=== PATIENT | male | born 1950 | race Caucasian/White ===

== ENCOUNTER 2020-09-21 07:16 | Outpatient (CLI) | payer MEDICARE, SELFPAY ==
--- NOTE | 2020-09-21 07:51 | ECG_ITS ---
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 The perfusion scan will be documented separately. DATA: Baseline heart rate was [65 beats per minute. Baseline blood pressure was 152/81 millimeters of mercury. Target heart rate was 149. Maximum heart rate achieved was 81, which was 54 % of the predicted target heart rate. Maxim/um blood pressure was 156/81 millimeters of mercury. The reason for ending the test was completion of the protocol. The patient did not experience any symptoms. ELECTROCARDIOGRAM: BASELINE: Sinus rhythm. Normal axis. Otherwise, no ST-T changes suggestive of ischemia noted. No arrhythmia noted. EXERCISE: After Lexiscan injection, no ST-T changes suggestive of ischemic noted. No arrhythmia noted. CONCLUSION: Please note due to baseline abnormality of the EKG specificity and sensitivity of the EKG portion of LexiScan MIBI stress test will be low 1. EKG not suggestive of ischemia 2. Lexiscan injection unremarkable. 3. Perfusion scan will be documented separately. Electronically Signed On 09-22-2020 18:37:13 CDT by NORM CULLEN
[2020-09-21 07:52] VITALS: BMI 33.0
--- NOTE | 2020-09-21 07:52 | NMCV_ITS ---
NM mia perf SPECT r/s* [id number] Jorge A Sexton Age: 70 Gender: M : 1950 Exam Date: 09/21/2020 07:52 Ordering Phys: Elenita Murrieta Technologist: CRISELDA Cruz Exam Location: [facility] Indications: Chest pain STRESS TEST Please see separate stress test report in [facility] for full findings IMAGE PROTOCOL Rest/Stress 1 Lexiscan Day Radiopharmaceutical Dose (mCi) Administration Site Administered by Rest: Tc-99m 10.3 IV CRISELDA Cruz Sestamibi Stress:Tc-99m 32.7 IV CRISELDA Cruz Sestamibi Rest: 21-Sep-2020 60 Discovery 630 Stress: 21-Sep-2020 45 Discovery 630 0.4mg Lexiscan, .images obtained in supine and prone position. SPECT RESULTS Technical Quality: Good Raw Data Analysis: Normal Image Corrections: No attenuation or motion correction applied Summed Stress Score: 0 Summed Rest Score: 1 Summed Difference Score: 0 PERFUSION FINDINGS Medium-sized area of fixed perfusion defect noted in the basal to mid inferior inferolateral wall suggestive of old myocardial infarction versus artifact. FUNCTIONAL RESULTS (calculated via Gated SPECT) Stress Image LV EF (%): 43 Stress EDV (mL):92 TID: 1.22 Stress ESV (mL):52 Rest Image LV EF (%): 43 FUNCTIONAL FINDINGS: Left ventricular ejection fraction is moderately reduced however this may not be completely reliable or accurate. There may be global hypokinesis. Echocardiogram is better modality to assess LV function. IMPRESSIONS Medium-sized area of basal to mid inferior inferolateral wall fixed perfusion defect suggestive of old myocardial infarction versus scarring . Artifact cannot be ruled out in the absence of prone images TID ratio was elevated 1.2 which could be secondary to left ventricle hypertrophy/subendocardial ischemia. This study is negative for ischemia. EKG segment will be documented separately. Kentrell Christine MD (Electronically Signed) Final Date: 21 September 2020 12:35 S
--- NOTE | 2020-09-21 08:12 | PC.NURSE ---
STRESS TEST NOTE Júnior. DINA SHIELDS CALLED AT 0745. A MESSAGE WAS LEFT FOR HER TO CALL ME BACK FOR AN ORDER CLARIFICATION. TELEPHONE ORDER RECEIVED AT 0815 TO CHANGE THE TEST FROM A DOBUTAMINE SESTAMIBI TO A LEXISCAN SESTAMIBI STRESS TEST.
[2020-09-21] MEDS: regadenoson 0.4 Mg/5 ml Syringe IVP (09:15)
[2020-09-21 09:31] VITALS: BP 144/75; PULSE 70
== END 2020-09-21 07:17 | disposition home or self-care (01) ==
LOC: CDL 07:20
PROVIDERS: PCP Nurse Practitioner Family; Visit Provider Nurse Practitioner Family
DX: R07.9 Chest pain, unspecified (principal); I25.2 Old myocardial infarction
CPT/HCPCS: 78452; 93017; A9500; J2785

== ENCOUNTER 2020-10-22 12:30 | Outpatient (CLI) | payer MEDICARE, SELFPAY ==
[2020-10-22 12:57] LABS: Basophils # 0.1 10^3/uL (0.0-0.1); Basophils % 0.8 %; Eosinophils # 0.2 10^3/uL (0.0-0.8); Eosinophils % 3.3 %; Hematocrit 41.5 % (42.0-52.0); Hemoglobin 14.3 g/dL (11.7-16.6); Lymphocytes % 31.6 %; Mean Corpuscular HGB Conc 34.5 g/dL (30.0-36.0); Mean Corpuscular Hemoglobin 31.4 pg (28.0-34.0); Mean Platelet Volume 9.2 fL (7.4-10.4); Monocytes # 0.4 10^3/uL (0.2-0.9); Monocytes % 6.5 %; Neutrophils # 3.71 10^3/uL (1.8-7.7); Neutrophils % 57.6 %; Nucleated Red Blood Cells % 0 %; Platelet Count 245 10^3/cmm (130-400); Red Blood Count 4.56 10^6/uL (4.1-5.3); Red Cell Distribution Width 12.8 % (12.1-15.1); White Blood Count 6.4 10^3/uL (4.0-10.0)
[2020-10-22 13:18] LABS: INR 0.97 (0.8-1.2)
[2020-10-22 13:22] LABS: Blood Urea Nitrogen 27 mg/dL (8-23); Calcium 9.4 mg/dL (8.5-10.5); Carbon Dioxide 27 mmol/L (22-29); Chloride 104 mmol/L (98-107); Chol HDL Ratio 7.42 mg/dL (1.0-5.00); Cholesterol 230 mg/dL (0-200); Glucose 99 mg/dL (65-115); HDL Cholesterol 31 mg/dL (60-100); LDL Cholesterol Calculated 154 mg/dL (50-129); LDL HDL Ratio 4.97 RATIO (0.00-3.22); Osmolality Calculated 295 mOsm/kg (285-295); Sodium 140 mmol/L (136-145); Triglycerides 224 mg/dL (0-150)
== END 2020-10-22 12:31 | disposition home or self-care (01) ==
PROVIDERS: PCP Nurse Practitioner Family; Visit Provider Internal Medicine
DX: E78.5 Hyperlipidemia, unspecified (principal); R07.89 Other chest pain
CPT/HCPCS: 36415; 80048; 80061; 85025; 85610; 87635

== ENCOUNTER → 2020-10-26 07:18 | Day surgery (SDC) | payer MEDICARE, SELFPAY ==
[2020-10-25 09:43] VITALS: BMI 33.6
[2020-10-27] VITALS (13 sets, daily range): BP systolic 125–146; BP diastolic 68–76; PULSE 53–75; RESP 13–18; O2SAT 98–100; BMI 33.6
--- NOTE | 2020-10-27 05:53 | XACV_ITS ---
Ht: 185 cm Wt: 116 kg BSA: 2.48 m2 Gender: Male : 1950 Any Known Allergies: No known allergies Exam Priority: Routine Procedure(s): Procedure Description: Diagnostic procedure Procedure Description: Left Heart Catheterization Procedure Description: Pressure Wire Procedure Description: Coronary angiography Diagnostic Cath Status: Elective Diagnostic Findings * A large ramus artery is noted. It gives off a branch which is medium sized and has a 80% proximal stenosis. No major stenosis in the main ramus artery. * RCA is a large, dominant vessel. Proximal to mid RCA has 30-40% stenosis. It gives rise to a PDA and PLV branches. PDA is a large vessel that has distal 70% stenosis. RPDA: Moderate 70% stenosis, MARIANA: 3 flow. * LAD arises from left main artery. Mid Left Anterior Descending Coronary Artery: Moderate 50% stenosis, MARIANA: 3 flow. We performed FFR of mid LAD that was not significant. * After coronary angiography we decided to perform FFR of mid LAD. IV heparin was administered to maintain FFR more than 250 seconds. Left main artery was engaged using XB 3.5 guide catheter. After zeroing and equalizing, the pressure device was placed in distal LAD past the mid LAD stenosis. FFR was performed using IV adenosine. An FFR value of 0.87 was obtained which was not significant. At this time guidewire was removed and final angiogram was performed. Patient left the Touch Up Worker in stable condition.. * LM has 0% stenosis. * dCIRC: Severe 80% stenosis, MARIANA: 3 flow. * Coronary angiography shows right dominance. Conclusions 1. There is multivessel coronary artery disease however significant stenosis are in very distal vessels.. 2. Moderate mid LAD stenosis. FFR not significant. Recommendations * Given patient's atherosclerotic coronary artery disease, we will start atorvastatin 40 mg daily. * Aggressive * blood pressure control. * We will recommend medical therapy with aggressive risk factor modification. If patient continues having symptoms in future, can consider revascularization of distal circumflex and branch of ramus however optimal medical therapywill be strategy of choice here.. Interventional RX Recommendation: medical therapy and/or counseling Diagnostic RX Recommendation: medical therapy and/or counseling Anticoagulation: Heparin Pressures Phase:Rest AO : 122 / 65 ( 89 ) @ 1:53:00 AM 136 / 24 ( 57 ) @ 1:59:00 AM LV : 152 / -16 / @ 1:59:00 AM Clinical Evaluation EBL: 5mL-10mL Procedural Details Procedure Consent Obtained. Pre-Procedure Time Out. Identified patient by full name and date of as verbalized by the patient/guarantor. Does the consent match the physician's order: Yes. Accurate & Complete Informed Consent: Yes. Inpatient/Outpatient History & Physical on Chart: Yes. If H&P is completed, is and addenduem needed: N/A; If yes, is the addendum complete: N/A. Visualize and Verify Site with Patient/Guarantor: N/A. Relevant Radiology Images available: Yes. Pre-op teaching completed and patient verbalized understanding. The risks, benefits, and alternatives of sedation and/or procedure were discussed by physician. The patient agrees to continue. Procedure started. Correct patient, site and procedure confirmed by cath team. PERRLA. Strong, equal hand production tool engineer bilaterally. Lungs clear x 5 lobes. IV Site on Arrival: 20 gauge in the right anticubital. IV Fluids: 0.9% NaCl at KVO. 0 mL infused prior to cath lab radiological technologist. Pre Procedural Pulses: right dorsalis pedis was 2+. Pre Procedural Pulses: left dorsalis pedis was Doppled. Pre Procedural Pulses: right posterior tibial was 3+. Pre Procedural Pulses: left posterior tibial was Doppled. Pre Procedural Pulses: bilateral radial was 3+. Oxygen started at 2liters/min via nasal canula. right groin was prepped with chloroprep then draped in the usual sterile fashion. right radial was prepped with chloroprep then draped in the usual sterile fashion. Physician notified. Equipment: 6F - Radial. Cardiac Cath Pack. ACIST Manifold Kit Model BT 2000. Heparinized Saline (2 units/mL), 1000 mL bag. Physician arrived. Baseline sample Acquired. HR: 50 BPM. Physician scrubbed in. Immediate Pre-Procedure Time Out. Correct Patient: Yes; Correct Procedure: Yes; Correct Site: Yes; Correct Patient Position: Yes; Correct Supplies: Yes; Dried Flammable Prep: Yes; Blood Products Available: No;. Lidocaine 1% infiltrated to the right radial. Arterial access obtained. Glidewire inserted. A 5 yoruba TIG catheter in over wire. wire out. Multiple views taken of left coronary artery. Catheter redirected to the RCA. EDP Sample taken: LV 152/-17,5; HR: 72 BPM; SpO2: 99%. Pullback taken: LV Off; AO Off; Mean: , Peak to Peak: , SEP: ; HR: 59 BPM; SpO2: 99%. Multiple views taken of right coronary artery. Catheter out. Dr. Dominguez reviewing pictures. Physician scrubbed in. wire inserted. 6 yoruba XB 3.5 guide catheter was inserted over the wire. wire out. FFR guidewire was advanced through the guide catheter to lesion in the mid LAD. An FFR value of 0.87 was obtained for a lesion located at Mid LAD. Fractional flow reserve measurements obtained. Wire out. Guide catheter out. A TR Band was successful obtaining hemostatsis at the Right Radial artery insertion site. TR band placed. Hemostasis obtained. Post Procedure: Pulses reassessed and unchanged. PERRLA. Strong, equal hand production tool engineer bilaterally. No VTE prophylaxis required. Medication's Wasted: Lidocaine 1% = 18 mL. Medication's Wasted: Nitro = 49.8 mg. Medication's Wasted: Heparin = 3000 units. Medication's Wasted: Other = adenosine 51.2 mg. Total IV fluids: 100 mL. Fluoro: 15:30. Contrast type used: Omnipaque 300 mgI/mL, 500 mL bottle. [id number]. Post-op diagnosis: moderate CAD. Complications: none. Estimated blood loss: 5mL-10mL. Procedure completed. Patient transferred by wheelchair to CPRU. [facility] Clinical Fraility Score: 2: Well. Touch Up Worker Indications: Worsening Angina. Chest Pain Symptom Assessment: Atypical Angina. Cardiovascular Instability: No. Vital chart was stopped. Access Site Site: Right Radial artery Sheath Size: 6 Fr Hemostasis Method: TR Band Hemostasis Success: Successful Procedure Medications Start: 7:40 AM Stop: 7:40 AM Medication: Versed Amount: 1 mg Route: I.V. Start: 7:40 AM Stop: 7:40 AM Medication: Fentanyl Amount: 50 mcg Route: I.V. Start: 7:49 AM Stop: 7:49 AM Medication: Nitrogylcerin Amount: 200 mcg Route: I.A. Start: 7:54 AM Stop: 7:54 AM Medication: Heparin Amount: 5000 units Route: I.V. Start: 7:59 AM Stop: 7:59 AM Medication: Versed Amount: 1 mg Route: I.V. Start: 7:59 AM Stop: 7:59 AM Medication: Fentanyl Amount: 50 mcg Route: I.V. Start: 8:13 AM Stop: 8:13 AM Medication: Heparin Amount: 3000 units Route: I.V. Start: 8:33 AM Stop: 8:33 AM Medication: Versed Amount: 1 mg Route: I.V. Start: 8:34 AM Stop: 8:34 AM Medication: Versed Amount: 1 mg Route: I.V. I, the attending physician, have reviewed and verified all procedure medications. Yes, all medications given per verbal order History/Risk Factors Hypertension: Yes Dyslipidemia: No Peripheral Arterial Disease (PAD): No Myocardial Infarction (OK): No Obesity: No Renal Disease: No Tobacco Use: Former Prior Interventions PCI: No CABG: No Valve Surgery: No Report Signatures Finalized by Azael Silveira MD on 10/28/2020 12:04 PM
[2020-10-27] MEDS: diphenhydrAMINE 50 mg Capsule PO (06:26)
--- NOTE | 2020-10-27 07:30 | PM.HP ---
Providers/Chief Complaint Primary Care Provider: DINA Gomes Chief Complaint: [facility] History of Present Illness 70-year-old man with past medical history of hypertension was referred to cardiology for evaluation of chest discomfort and fatigue. According to patient he started noticing substernal chest pressure about 2 to 3 months ago. Mostly it comes with exertion however can occur at rest as well. Lasts for a few minutes and then resolves especially on rest. It also radiates to the neck however he cannot differentiate between neck muscle pain and the pain associated with chest pressure. 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 For the similar duration he is also feeling very tired and fatigued. He says that he wakes up with normal energy however in the few hours he starts feeling really tired. This is new for him. EKG performed today in the office showed normal sinus rhythm possible inferior myocardial infarction. Patient has undergone nuclear stress test that showed a medium sized area of basal to mid inferior and inferior lateral wall fixed defect. Transient ischemic dilation was noted with a ratio of 1.2 that could represent multivessel disease. Review of Systems Const: Reports: fatigue; Denies: fever(s), chills or body aches Eyes: Reports: change in vision and blurry vision ENMT: Denies: odynophagia Card: Reports: swelling of feet/ankles and dyspnea on exertion; Denies: chest pain, palpitations, irregular heart rhythm, lightheadedness, syncope or orthopnea Resp: Denies: dyspnea, productive cough or non-productive cough GI: Denies: nausea, vomiting or heartburn : Denies: flank pain Musc: Reports: neck pain; Denies: back pain or joint pain Skin/Breast: Denies: rash or pruritus Neuro: Denies: headache(s), numbness in extremities, weakness in extremities, dizziness or vertigo Psych: Denies: anxiety or depression Martín/Lymph: Reports: easy bleeding; Denies: easy bruising Medications/Allergies Home Medications Medication Instructions Recorded Confirmed Last Taken Type aspirin 81 mg tablet,delayed 81 mg PO DAILY 12/30/19 10/27/20 10/26/20 20:00 History release telmisartan 40 mg tablet 40 mg PO DAILY #90 tab 08/31/20 10/27/20 10/27/20 04:30 Rx Allergies Allergy/AdvReac Type Severity Reaction Status Date / Time No Known Allergies Allergy Verified 09/22/20 09:39 PFSH Acute PFSH: Medical History HTN (hypertension), benign Family History Father Cancer pancreatic cancer Social History Smoking and tobacco status: former smoker Vitals/I&O/Wt Weight last 48 hrs Weight 255 lb Weight 255 lb Physical Exam Narrative: EXAM NARRATIVE: GENERAL: Patient is alert, awake and oriented x3. [] NECK: No jugular vein distension. [] HEENT: No cyanosis. No icterus. No pallor. [] HEART: Regular S1 and S2. No murmur, rub or gallop. [] LUNGS: Clear to auscultate bilaterally. [] ABDOMEN: Soft, nontender and nondistended. Positive bowel sounds. No guarding, rebound or tenderness. [] CENTRAL NERVOUS SYSTEM: Grossly nonfocal. [] EXTREMITIES: Lower extremities with 1+ edema bilaterally. Pulses palpable in the lower extremities, both dorsalis pedis and posterior tibial. [] A&P Assessment and plan (1) Abnormal cardiovascular stress test: Status: Acute (2) Chest pressure: Status: Acute (3) HTN (hypertension), benign: Status: Acute Patient has been having on and off chest discomfort episode along with significant fatigue that started recently. He underwent nuclear stress test that showed fixed defects however there was increased transient ischemic dilation ratio. Given his symptoms and nuclear stress test findings, we will proceed with coronary angiography with possible percutaneous coronary intervention. I have discussed the risks and benefits with the patient. Risks including bleeding, infection, abnormal kidney function, abnormal heart rhythm, heart attack, stroke or have been described. Patient understands the risks and benefits and wants to proceed with the procedure. Attestations Medical Necessity Statement*: Care not expected to cross 2 midnights. Patient here for outpatient coronary angiography with possible percutaneous coronary intervention. Coding Level of Care Code Acute Brand Activation Manager for [facility] Fwd Diagnoses Abnormal cardiovascular stress test R94.39 Chest pressure R07.89 HTN (hypertension), benign I10
--- NOTE | 2020-10-27 08:48 | PC.NURSE ---
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 diagnostic c with radial right wrist tr band in place. radial pulses +3. pt alert and oriented x3 able to ambulate to bed from wheelchair with no problems. surveillance monitor placed on pt and vitals obtained. no bleeding or hematoma noted. verbal instructions given to patient regarding right arm restrictions. he verbalized understanding. bed down and locked, call light on bedside table. no pain reported.
--- NOTE | 2020-10-27 10:45 | PC.NURSE ---
T R band deflated per protocol. No bleeding or swelling noted. PMS back to baseline.
== END | disposition home or self-care (01) ==
LOC: CCL 10-27 05:42 → CSU 10-27 09:04 → CCL 09-20 03:24
PROVIDERS: Internal Medicine; PCP Nurse Practitioner Family; Visit Provider Internal Medicine Cardiovascular Disease
DX: I25.10 Atherosclerotic heart disease of native coronary artery without angina pectoris (principal); R94.39 Abnormal result of other cardiovascular function study; R07.89 Other chest pain; I10 Essential (primary) hypertension; Z79.82 Long term (current) use of aspirin; Z87.891 Personal history of nicotine dependence
CPT/HCPCS: 93452; 93571; C1769; C1887; C1894; J0153; J1644; J2250; J3010; J3490; J7030; Q0163; Q9967

== ENCOUNTER → 2020-11-03 10:27 | Outpatient (BNVA) | payer MEDICARE, SELFPAY | PROVIDERS: PCP Nurse Practitioner Family; Visit Provider Nurse Practitioner Family | DX: I25.119 Atherosclerotic heart disease of native coronary artery with unspecified angina pectoris (principal); Z09 Encounter for follow-up examination after completed treatment for conditions other than malignant neoplasm | CPT/HCPCS: 80048 ==

== ENCOUNTER 2020-11-25 05:31 | Outpatient (CLI) | payer MEDICARE, SELFPAY ==
[2020-11-25] VITALS (10 sets, daily range): BP systolic 122–173; BP diastolic 66–78; PULSE 66–88; RESP 16–20; TEMP 36.6–37.2; O2SAT 93–96; BMI 33.9
--- NOTE | 2020-11-25 06:13 | ECG_ITS ---
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 Measurements Intervals [place] Rate: 73 P: 45 OR: 159 QRS: -33 QRSD: 104 T: 73 QT: 409 QTc: 454 Interpretive Statements SINUS RHYTHM LEFT AXIS DEVIATION [QRS AXIS < -30] PATTERN CONSISTENT WITH PULMONARY DISEASE NONSPECIFIC ST & T-WAVE ABNORMALITY No previous ECG available for comparison Electronically Signed On 11-25-2020 15:01:35 COMB MACHINE OPERATOR by Azael Silveira M.D. [email or web address]
--- NOTE | 2020-11-25 06:13 | XR_ITS ---
WS: [id number] Exam: XR chest 1V portable [id number] Date/Time of Exam: 11/25/2020 7:20 AM Reason For Exam: dyspnea/cough No priors. Groundglass infiltrates noted in the mid and lower right lung and possibly in the mid left lung. Hear t size is normal for technique. No pleural effusions. No pneumothorax. Regional bony structures are u nremarkable. XR/XR chest 1V portable [id number] IMPRESSION: 1. Ground glass infiltrates in the mid and lower right lung and probably in the mid left lung. These changes could be chronic but most likely represent active pneumonia.
--- NOTE | 2020-11-25 06:14 | ED_ITS ---
HPI - General Adult General: Chief complaint: General Medical Stated complaint: general unwell Time Seen by Provider: 11/25/20 05:45 History of Present Illness: HPI narrative: 70-year-old male presents emergency room complaining of just generally not feeling well. He states for the last week he has been sick with a cough increased shortness of breath low-grade fevers loss of appetite and anosmia. He has not had any diarrhea his cough has not been productive. 1 month ago he had a Covid swab for prescreening before a angiogram. The Covid swab was negative. 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 Patient denies any recent chest pain. Interestingly his thinks she had Covid 2 months ago and then about a month ago tested positive for screen prior to an eye surgery. Onset (ago): day(s) (6-) Severity: mild Relieving factors: none Associated symptoms: Reports malaise; Deny chest pain, dyspnea, nausea, rash or vomiting Review of Systems Const: Reports: fever(s), chills, body aches, change in appetite, fatigue and malaise ENMT: Reports: throat pain and nasal congestion; Denies: ear or mastoid pain or nasal discharge Card: Denies: chest pain, edema, dyspnea on exertion or orthopnea Resp: Reports: non-productive cough and chest congestion; Denies: dyspnea or productive cough GI: Denies: abdominal pain, nausea, vomiting, hematemesis, coffee ground emesis, diarrhea, constipation, bloating, hematochezia or melena : Denies: flank pain, dysuria, urinary frequency or urinary urgency Skin/Breast: Denies: rash or pruritus PFSH ED PFSH: Medical History (Updated 11/25/20 @ 08:50 by Robert Hare DO) CAD (coronary artery disease) HTN (hypertension), benign Family History Father Cancer pancreatic cancer Social History Smoking and tobacco status: former smoker Physical Exam Const: COMMON NORMALS: no acute distress GENERAL APPEARANCE: cooperative and comfortable ORIENTATION/CONSCIOUSNESS: Yes awake, Yes oriented to person, Yes oriented to place and Yes oriented to time HENMT: COMMON NORMALS: normocephalic, atraumatic and hearing grossly normal bilaterally HEAD & SCALP: normocephalic and atraumatic Eye: COMMON NORMALS: Equal, round and reactive pupils present, EOMs intact bilaterally, conjunctivae normal and no scleral icterus CONJUNCTIVA: Yes conjunctivae normal PUPIL: Yes Equal, round and reactive pupils present Neck/C-Spine: COMMON NORMALS: full ROM, no lymphadenopathy, supple and no JVD Lymph: LYMPHATIC: no lymphadenopathy noted and no lymphedema noted Resp: COMMON NORMALS: normal respiratory effort, No retractions, No use of accessory muscles and clear to auscultation bilaterally AUSCULTATION: clear to auscultation bilaterally Cardio: COMMON NORMALS: no JVD, regular rate, regular rhythm and No murmurs present (Cardio) RATE: regular rate RHYTHM: regular rhythm GI: COMMON NORMALS: Soft to palpation and No hepatosplenomegaly present AUSCULTATION: Yes normoactive bowel sounds PALPATION: Yes Soft to palpation, No Tenderness to palpation present (GI), No Guarding due to palpation present (GI) and Yes No hepatosplenomegaly present Extremity: COMMON NORMALS: normal to inspection, capillary refill normal, no clubbing, cyanosis or edema, no calf tenderness and no pedal edema Neuro: SENSORIUM/ORIENTATION: Yes oriented to person, Yes oriented to place and Yes oriented to time Skin: COMMON NORMALS: no rashes or lesions noted GENERAL SKIN EXAM: no rashes or lesions noted Course Vital Signs: Vital signs: Vital Signs Temperature 97.9 F 11/25/20 11:33 Pulse Rate 67 11/25/20 11:33 Respiratory Rate 16 11/25/20 11:33 Blood Pressure 145/73 11/25/20 11:33 Pulse Oximetry 96 11/25/20 11:33 MDM - General Adult Differential Diagnosis: Differential Diagnosis: You tested positive for COVID- 19 today. Recommend that you remain self quarantined for the next 14 days. After being discharged from the emergency room you will be brought to the infusion clinic for monoclonal antibodies. Patient tested positive on antigen test for COVID-19. He is stable and meets requirements for inclusion in monoclonal antibody treatment therapy. We will go ahead and send him over to the infusion clinic I have already discussed with him and given him the information he has signed to the consent. Lab Data: Labs: Lab Results 12/31/20 12/31/20 12/31/20 Range/Units 06:25 06:40 06:40 WBC 4.5 (4.0-10.0) 10^3/ uL RBC 4.59 (4.1-5.3) 10^6/u L Hgb 14.2 (11.7-16.6) g/dL Hct 40.5 L (42.0-52.0) % MCV 88.2 (80-94) fL MCH 30.9 (28.0-34.0) pg MCHC 35.1 (30.0-36.0) g/dL RDW 12.2 (12.1-15.1) % Plt Count 159 (130-400) 10^3/c mm MPV 10.1 (7.4-10.4) fL Neut % (Auto) 78.2 % Lymph % (Auto) 15.8 % Custer % (Auto) 5.6 % Eos % (Auto) 0.0 % Baso % (Auto) 0.2 % Neut # (Auto) 3.51 (1.8-7.7) 10^3/u L Lymph # (Auto) 0.7 L (0.8-4.8) 10^3/u L Custer # (Auto) 0.3 (0.2-0.9) 10^3/u L Eos # (Auto) 0.0 (0.0-0.8) 10^3/u L Baso # (Auto) 0.0 (0.0-0.1) 10^3/u L Nucleated RBC % (a uto) 0 % Nucleated RBCs # 0.0 /100WBC Sodium 137 (136-145) mmol/L Potassium 3.3 L (3.5-5.1) mmol/L Chloride 102 (98-107) mmol/L Carbon Dioxide 24 (22-29) mmol/L Anion Gap 14.3 (5-19) BUN 16 (8-23) mg/dL Creatinine 0.8 (0.7-1.2) mg/dL GFR Calculation Not Reportable Glucose 101 (65-115) mg/dL Calculated Osmolal ity 285 (285-295) mOsm/k g Calcium 8.4 L (8.5-10.5) mg/dL Total Bilirubin 0.8 (0.15-1.2) mg/dL AST 52 H (0-40) U/L ALT 49 H (0-41) U/L Alkaline Phosphata se 55 (40-130) IU/L Total Protein 7.0 (6.6-8.7) g/dL Albumin 3.8 (3.5-5.2) g/dL Globulin 3.2 (1.3-4.6) g/dL Urine Color (Yellow) Urine Appearance (CLEAR) Urine pH (5-7) Ur Specific Gravit y (1.005-1.030) Urine Protein (Negative) Urine Glucose (UA) (Normal) Urine Ketones (Negative) Urine Blood (Negative) Urine Nitrate (Negative) Urine Bilirubin (Negative) Urine Urobilinogen (Negative) mg/dL Ur Leukocyte Nessa ase (Negative) Urine RBC (0-2) /hpf Urine WBC (0-5) /hpf Ur Squamous Epith Cells (0-5) /hpf Amorphous Sediment Urine Bacteria (NONE) /hpf Urine Mucus /hpf SARS-CoV-2 Ag (Rap id) Positive H (Negative) 11/25/20 Range/Units 07:54 WBC (4.0-10.0) 10^3/ uL RBC (4.1-5.3) 10^6/u L Hgb (11.7-16.6) g/dL Hct (42.0-52.0) % MCV (80-94) fL MCH (28.0-34.0) pg MCHC (30.0-36.0) g/dL RDW (12.1-15.1) % Plt Count (130-400) 10^3/c mm MPV (7.4-10.4) fL Neut % (Auto) % Lymph % (Auto) % Custer % (Auto) % Eos % (Auto) % Baso % (Auto) % Neut # (Auto) (1.8-7.7) 10^3/u L Lymph # (Auto) (0.8-4.8) 10^3/u L Custer # (Auto) (0.2-0.9) 10^3/u L Eos # (Auto) (0.0-0.8) 10^3/u L Baso # (Auto) (0.0-0.1) 10^3/u L Nucleated RBC % (a uto) % Nucleated RBCs # /100WBC Sodium (136-145) mmol/L Potassium (3.5-5.1) mmol/L Chloride (98-107) mmol/L Carbon Dioxide (22-29) mmol/L Anion Gap (5-19) BUN (8-23) mg/dL Creatinine (0.7-1.2) mg/dL GFR Calculation Glucose (65-115) mg/dL Calculated Osmolal ity (285-295) mOsm/k g Calcium (8.5-10.5) mg/dL Total Bilirubin (0.15-1.2) mg/dL AST (0-40) U/L ALT (0-41) U/L Alkaline Phosphata se (40-130) IU/L Total Protein (6.6-8.7) g/dL Albumin (3.5-5.2) g/dL Globulin (1.3-4.6) g/dL Urine Color Yellow (Yellow) Urine Appearance Clear (CLEAR) Urine pH 5.0 (5-7) Ur Specific Gravit y 1.020 (1.005-1.030) Urine Protein 1+ H (Negative) Urine Glucose (UA) Norm (Normal) Urine Ketones 1+ H (Negative) Urine Blood Neg (Negative) Urine Nitrate Negative (Negative) Urine Bilirubin 1+ H (Negative) Urine Urobilinogen 1 H (Negative) mg/dL Ur Leukocyte Nessa ase Negative (Negative) Urine RBC None (0-2) /hpf Urine WBC 0-4 H (0-5) /hpf Ur Squamous Epith Cells 5-10 H (0-5) /hpf Amorphous Sediment Not Reportable Urine Bacteria Trace (NONE) /hpf Urine Mucus 2+ /hpf SARS-CoV-2 Ag (Rap id) (Negative) Discharge Plan Discharge Patient Disposition: Home Clinical Impression: COVID-19, HTN (hypertension), benign Condition: Stable Discharge Orders: Discharge ED (Routine); Ordered 11/25/20 Ordered By: Robert Hare Discharge Diet: Usual diet Discharge Activity: Increase activity as tolerated Coding Level of Care Code ED [place] Machine Operator for Chg Fwd Exam Comprehensive
[2020-11-25 06:58] LABS: Basophils % 0.2 %; Hematocrit 40.5 % (42.0-52.0); Hemoglobin 14.2 g/dL (11.7-16.6); Lymphocytes # 0.7 10^3/uL (0.8-4.8); Lymphocytes % 15.8 %; Mean Corpuscular HGB Conc 35.1 g/dL (30.0-36.0); Mean Corpuscular Hemoglobin 30.9 pg (28.0-34.0); Mean Corpuscular Volume 88.2 fL (80-94); Mean Platelet Volume 10.1 fL (7.4-10.4); Monocytes # 0.3 10^3/uL (0.2-0.9); Monocytes % 5.6 %; Neutrophils # 3.51 10^3/uL (1.8-7.7); Neutrophils % 78.2 %; Nucleated Red Blood Cells % 0 %; Platelet Count 159 10^3/cmm (130-400); Red Blood Count 4.59 10^6/uL (4.1-5.3); Red Cell Distribution Width 12.2 % (12.1-15.1); White Blood Count 4.5 10^3/uL (4.0-10.0)
[2020-11-25 07:19] LABS: Alanine Aminotransferase 49 U/L (0-41); Albumin Level 3.8 g/dL (3.5-5.2); Alkaline Phosphatase 55 IU/L (40-130); Anion Gap 14.3 (5-19); Aspartate Amino Transferase 52 U/L (0-40); Blood Urea Nitrogen 16 mg/dL (8-23); Calcium 8.4 mg/dL (8.5-10.5); Carbon Dioxide 24 mmol/L (22-29); Chloride 102 mmol/L (98-107); Creatinine Clr Calc Pharmacy 110.1115; Globulin 3.2 g/dL (1.3-4.6); Glucose 101 mg/dL (65-115); Osmolality Calculated 285 mOsm/kg (285-295); Potassium 3.3 mmol/L (3.5-5.1); Sodium 137 mmol/L (136-145); Total Bilirubin 0.8 mg/dL (0.15-1.2)
[2020-11-25 07:25] LABS: SARS Covid-2 Antigen Positive (Negative)
--- NOTE | 2020-11-25 08:31 | DCPLANNER ---
Addendum entered by Harika Ortez 12/07/20 16:03: regulatory product manager called to check on patient 10 days after getting the BAM infusion. Patient stated that he was doing fine, has not been admitted to the hospital anywhere. Addendum entered by Harika Ortez 12/02/20 15:59: regulatory product manager called patient to check on patient after getting the BAM infusion. regulatory product manager unable to speak with patient at this time, and unable to leave a voicemail for patient. Addendum entered by Harika Ortez 11/30/20 16:11: regulatory product manager had message that patient received the BAM infusion. regulatory product manager called to check on patient after receiving the BAM infusion. Patient stated that he tolorated the infusion great. That before the infusion, that he was real sick, that he had a cough, fever, headache, and his body ached all over. Patient stated that after the infusion that he is feeling great. Patient stated that he was feeling better the next day. He does not have a fever, no cough, feeling great. Original Note: regulatory product manager was asked to arrange an out patient BAM infusion for patient. regulatory product manager faxed patients order for the BAM infusion to centralized scheduling.
[2020-11-25 08:36] LABS: Add Urine Culture? No; Add Urine Microscopic? YES; Bacteria Urine TRACE /hpf; Bilirubin Urine 1+ (Negative); Blood Urine Neg (Negative); Glucose Urine UA Norm (Normal); Ketones Urine 1+ (Negative); Leukocyte Esterase Urine Negative (Negative); Mucus Urine 2+ /hpf; Nitrate Urine Negative (Negative); Protein Urine 1+ (Negative); Urine Appearance Clear (CLEAR); Urine Color Yellow (Yellow); Urobilinogen Urine 1 mg/dL (Negative); WBC Urine 0-4 /hpf (0-5)
--- NOTE | 2020-11-25 08:58 | PC.NURSE ---
Taken to the [facility] for the [facility] infusion with RN and Tech to clear the [place]. Pt and nurse with PPE.
== END 2020-11-25 11:30 | disposition home or self-care (01) ==
LOC: ER 06:16 → OPS 08:48 → ER 08:58 → OPS 09:05
PROVIDERS: Emergency Provider Family Medicine; Family Provider Nurse Practitioner Family; PCP Nurse Practitioner Family; Visit Provider Family Medicine
DX: U07.1 COVID-19 (principal)
CPT/HCPCS: 12345; 71045; 80053; 81001; 85025; 87426; 93005; 99283; J7050

== ENCOUNTER 2021-01-17 09:49 | Outpatient (CLI) | payer MEDICARE, SELFPAY ==
--- NOTE | 2021-01-17 10:15 | USCV_ITS ---
Jorge A Sexton Age: 70 Gender: M : 1950 Exam Date: 01/17/2021 10:22 Ordering Phys: Theresa Erazo Technologist: Radha Hanson Exam Location: [facility] [place] Indication: ABNML RESULT OF OTHER CV FUNCTION STUDY BP: 187 / 93 HR: 67 Rhythm: Sinus Technical Quality: Fair MEASUREMENTS (Male / Female) Normal Values 2D ECHO LV Diastolic Diameter PLAX 5.0 cm 4.2 - 5.9 / 3.9 - 5.3 cm LV Systolic Diameter PLAX 4.2 cm LV Chamber Size 5.3 cm IVS Diastolic Thickness 1.6 cm 0.6 - 1.0 / 0.6 - 0.9 cm IVS Systolic Thickness 1.6 cm LVPW Diastolic Thickness 0.9 cm 0.6 - 1.0 / 0.6 - 0.9 cm LVPW Systolic Thickness 1.3 cm RV Chamber Size 3.2 cm LVOT Diameter 2.0 cm LV Ejection Fraction 2D Teich 28.6 % LV Ejection Fraction MOD 2C 54.8 % LV Ejection Fraction 2C AL 55.7 % LA Diameter 4.0 cm LA Width 4.6 cm LA Height 5.4 cm RA Width 3.9 cm RA Height 4.5 cm Aorta at Sinotubular Diameter 3.1 cm M-MODE LV Diastolic Diameter MM 6.0 cm 4.2 - 5.9 / 3.9 - 5.3 cm LV Systolic Diameter MM 4.1 cm LV Ejection Fraction MM Teich 59.5 % IVS Diastolic Thickness MM 1.1 cm 0.6 - 1.0 / 0.6 - 0.9 cm IVS Systolic Thickness MM 1.4 cm LVPW Diastolic Thickness MM 0.8 cm 0.6 - 1.0 / 0.6 - 0.9 cm LVPW Systolic Thickness MM 1.3 cm RV Diastolic Diameter MM 2.6 cm Aortic Annulus Diameter 3.4 cm LA Ao Ratio MM 1.2 MV E Point Septal Separation 0.6 cm DOPPLER AV Peak Velocity 173.0 cm/s LVOT Peak Velocity 129.0 cm/s AV Area Cont Eq vti 2.5 cm squared AV Area Cont Eq pk 2.3 cm squared MV Area PHT 2.7 cm squared Mitral E to A Ratio 1.3 MV E' Velocity 55.5 cm/s Mitral E to MV E' Ratio 9.4 Mitral E to LV E' Lateral Ratio 7.8 Mitral E to LV E' Septal Ratio 12.0 TR Peak Velocity 240.1 cm/s TR Peak Gradient 23.1 mmHg TR Mean Velocity 178.1 cm/s TR Mean Gradient 14.1 mmHg TR Velocity Time Integral 58.6 cm TV Peak E Velocity 59.0 cm/s Right Atrial Pressure 3.0 mmHg Pulmonary Artery Systolic Pressu 26.1 mmHg PV Peak Velocity 74.0 cm/s RV Acceleration Time 0.1 s RV Ejection Time 0.3 s RV AcT/ET 0.5 FINDINGS Left Ventricle Normal left ventricular size. LV systolic function is normal with EF of 55-60%. No regional wall motion abnormalities. Normal diastolic filling pattern. Right Ventricle The right ventricle is normal in size and function. Right Atrium The right atrium is normal in size. Left Atrium The left atrium is enlarged Mitral Valve Structurally normal mitral valve without significant stenosis or prolapse. There is mild mitral regurgitation. Aortic Valve Structurally normal aortic valve without significant sclerosis or stenosis. There is mild to moderate aortic regurgitation. Tricuspid Valve Structurally normal tricuspid valve without significant stenosis or regurgitation. Insufficient TR jet to calculate RVSP Pulmonic Valve Structurally normal pulmonic valve without significant stenosis. There is no pulmonic regurgitation. Pericardium Normal pericardium without effusion. Aorta Normal ascending aorta dimension. CONCLUSIONS LV systolic function is normal with EF of 55-60% Diastolic function is normal Mild mitral regurgitation Mild to moderate aortic regurgitation No comparison studies are available. Azael Silveira MD (Electronically Signed) Final Date: 23 January 2021 14:55 S
== END 2021-01-17 09:50 | disposition home or self-care (01) ==
PROVIDERS: PCP Nurse Practitioner Family; Visit Provider Nurse Practitioner Family
DX: R94.39 Abnormal result of other cardiovascular function study (principal); I08.0 Rheumatic disorders of both mitral and aortic valves
CPT/HCPCS: 93306

== ENCOUNTER → 2021-03-08 11:14 | Outpatient (BNVA) | payer MEDICARE, SELFPAY | PROVIDERS: PCP Nurse Practitioner Family; Visit Provider Nurse Practitioner Family | DX: I10 Essential (primary) hypertension (principal) | CPT/HCPCS: 80053 ==

== ENCOUNTER → 2022-04-19 12:39 | Outpatient (BNVA) | payer MEDICARE, SELFPAY | PROVIDERS: PCP Nurse Practitioner Family; Visit Provider Internal Medicine | DX: R53.83 Other fatigue (principal); I10 Essential (primary) hypertension; R94.39 Abnormal result of other cardiovascular function study | CPT/HCPCS: 99213; 99214 ==

== ENCOUNTER → 2022-11-06 14:37 | Outpatient (BNVA) | payer MEDICARE, SELFPAY | PROVIDERS: PCP Nurse Practitioner Family; Visit Provider Nurse Practitioner Family | DX: I25.119 Atherosclerotic heart disease of native coronary artery with unspecified angina pectoris (principal); I10 Essential (primary) hypertension; Z87.891 Personal history of nicotine dependence | CPT/HCPCS: 99213 ==

== ENCOUNTER → 2023-04-06 09:24 | Outpatient (BNVA) | payer MEDICARE, SELFPAY | PROVIDERS: PCP Nurse Practitioner Family; Visit Provider Internal Medicine | DX: R07.89 Other chest pain (principal); R53.83 Other fatigue; I10 Essential (primary) hypertension; R94.39 Abnormal result of other cardiovascular function study; Z87.891 Personal history of nicotine dependence; Z79.82 Long term (current) use of aspirin | CPT/HCPCS: 99214 ==

== ENCOUNTER 2023-05-15 08:33 | Outpatient (CLI) | payer MEDICARE, SELFPAY ==
--- NOTE | 2023-05-15 08:45 | USCV_ITS ---
Jorge A Sexton Age: 72 Gender: M : 1950 Exam Date: 05/15/2023 09:02 Ordering Phys: Azael Silveira M.D ([email or web address]) Technologist: Clement Martin Exam Location: [facility] – [place] Indication: murmur BP: 130 / 68 HR: 81 Rhythm: Sinus Technical Quality: Adequate MEASUREMENTS (Male / Female) Normal Values 2D ECHO LVOT Diameter 2.0 cm LV Ejection Fraction MOD 2C 72.9 % LV Ejection Fraction 2C AL 73.9 % LA Diameter 3.7 cm LA Width 4.1 cm LA Height 5.4 cm RA Width 4.1 cm RA Height 5.5 cm Aorta at Sinotubular Diameter 2.9 cm IVC Diameter 1.7 cm M-MODE Aortic Annulus Diameter 3.3 cm LA Ao Ratio MM 1.1 MV E Point Septal Separation 0.6 cm DOPPLER AV Peak Velocity 279.7 cm/s LVOT Peak Velocity 140.0 cm/s AV Area Cont Eq vti 1.9 cm squared AV Area Cont Eq pk 1.6 cm squared MV Peak Velocity 117.0 cm/s MV Area PHT 3.5 cm squared Mitral E to A Ratio 1.0 MV E' Velocity 50.0 cm/s Mitral E to MV E' Ratio 8.3 Mitral E to LV E' Lateral Ratio 6.5 Mitral E to LV E' Septal Ratio 11.4 TR Peak Velocity 246.0 cm/s TR Peak Gradient 24.2 mmHg TR Mean Velocity 185.1 cm/s TR Mean Gradient 15.1 mmHg TR Velocity Time Integral 59.3 cm Right Atrial Pressure 3.0 mmHg Pulmonary Artery Systolic Pressu 27.2 mmHg PV Peak Velocity 117.3 cm/s RV Acceleration Time 0.1 s RV Ejection Time 0.3 s RV AcT/ET 0.4 FINDINGS Left Ventricle Left ventricle is normal in size. LV systolic function is normal with EF of 60 to 65%. No regional wall motion abnormalities are seen. Grade 1 diastolic dysfunction Right Ventricle Normal in size and function Right Atrium Normal in size Left Atrium Normal in size Mitral Valve Mild mitral annular calcification. Mild mitral regurgitation. Aortic Valve Aortic valve is thickened. Mild aortic stenosis with aortic valve area 1.8cm2 and Mean gradient across aortic valve of 16 mmHg. Mild aortic regurgitation. Tricuspid Valve Mild tricuspid regurgitation. Insufficient TR jet to calculate RVSP. Pulmonic Valve Not well visualized. Mild pulmonic regurgitation. Pericardium Normal Aorta Normal in size IVC Appears to be normal CONCLUSIONS LV systolic function is normal with EF of 60 to 65%. Grade 1 diastolic dysfunction Mild mitral regurgitation Mild aortic stenosis. Mild aortic regurgitation Mild tricuspid regurgitation Mild pulmonic regurgitation Compared to prior echocardiogram from 2020, patient now has mild aortic stenosis. Azael Silveira MD (Electronically Signed) Final Date: 19 May 2023 15:56 S
== END 2023-05-15 08:34 | disposition home or self-care (01) ==
PROVIDERS: PCP Nurse Practitioner Family; Visit Provider Internal Medicine
DX: I08.3 Combined rheumatic disorders of mitral, aortic and tricuspid valves (principal); R01.1 Cardiac murmur, unspecified
CPT/HCPCS: 93306